=== PATIENT | male | born 1980 | race Caucasian/White ===

== ENCOUNTER 2022-08-24 20:51 | Emergency (ER) | payer SELFPAY ==
[~2022-08-24] VITALS: Ht 152.4 cm; Wt 79.4 kg
[2022-08-24 21:24] VITALS: BP 207/123
--- NOTE | 2022-08-24 21:32 | NUR ---
TO LOBBY FOLLOWING TRIAGE
--- NOTE | 2022-08-24 22:24 | NUR ---
PT TO BED #11 Addendum: 08/24/22 at 2226 by MEDGJ TO BED #12
[2022-08-24] MEDS ORDERED: KETOROLAC 30 MG/ML VIAL IM ONE (22:40)
--- NOTE | 2022-08-24 22:40 | NUR ---
Xray by beside
--- NOTE | 2022-08-24 23:10 | NUR ---
VOLAR SPLINT AND SLING APPLIED TO R WRIST/ARM. CMS CHECKED BEFORE/AFTER.
[2022-08-24] MEDS ORDERED: NAPR-54 PO (23:32)
[2022-08-24 23:45] VITALS: BP 195/122
--- NOTE | 2022-08-24 23:46 | NUR ---
Patient discharged with v/s stable. Written and verbal after care instructions given and explained. New rx naproxen. Patient verbalized understanding. Ambulatory with steady gait. All questions addressed prior to discharge. Advised to follow up with PMD.
== END 2022-08-24 23:46 | disposition home or self-care (01) ==
LOC: MED 20:51
DX: S60.212A Contusion of left wrist, initial encounter (principal); W01.0XXA Fall on same level from slipping, tripping and stumbling without subsequent striking against object, initial encounter; Y93.89 Activity, other specified; Y92.89 Other specified places as the place of occurrence of the external cause; Y99.8 Other external cause status
CPT/HCPCS: 29125; 73110; 96372; 99283; J1885; Q0092

== ENCOUNTER 2022-10-27 07:02 | Emergency (ER) | payer MEDICAID ==
[~2022-10-27] VITALS: Ht 170.2 cm; Wt 113.4 kg
[~2022-10-27 07:02] MED LIST: ETOMIDATE 20 MG/10 ML VIAL IVP ONE; NAPR-54 PO; ROCURONIUM 50 MG/5 ML VIAL IV ONE; SUCCINYLCHOLINE CHLORIDE 200 MG/10 ML VIAL IVP ONE
--- NOTE | 2022-10-27 07:03 | NUR ---
PT FATMATA ALS. TAKEN TO BED 10
--- NOTE | 2022-10-27 07:03 | NUR ---
Respiratory Therapist at bedside for respiratory intervention.
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
--- NOTE | 2022-10-27 07:03 | NUR ---
Dr. Kumar examining patient.
[2022-10-27 07:06] VITALS: BP 255/145; PULSE 132; RESP 14; TEMP 102.7; O2SAT 96
[2022-10-27] MEDS ORDERED: NACL 0.9% 1,000 ML IV SCH (07:15)
[2022-10-27] MEDS ORDERED: PROPOFOL 1000 MG/100 ML PREMIX 100 ML IV ONE ×2 (07:15→07:40)
[2022-10-27] MEDS ORDERED: ETOMIDATE 20 MG/10 ML VIAL IVP ONE (07:20)
[2022-10-27] MEDS ORDERED: SUCCINYLCHOLINE CHLORIDE 200 MG/10 ML VIAL IVP ONE (07:20)
[2022-10-27] MEDS ORDERED: ACETAMINOPHEN 325 MG SUPP RC ONE ×2 (07:30→09:51)
[2022-10-27 07:32] LABS: BASOPHILS # (AUTO) 0.1 K/uL (0.00-0.22); BASOPHILS % (AUTO) 0.4 % (0.0-2.0); HEMATOCRIT 41.6 % (36-52); HEMOGLOBIN 14.1 g/dL (12.0-18.0); LYMPHOCYTES # (AUTO) 0.6 K/uL (2.0-11.5); LYMPHOCYTES % (AUTO) 4.6 % (20.5-51.1); MEAN CORPUSCULAR HEMOGLOBIN 32 pg (27-31); MEAN CORPUSCULAR HGB CONC 34 g/dL (33-37); MEAN CORPUSCULAR VOLUME 94.7 fL (80-94); MONOCYTES # (AUTO) 0.3 K/uL (0.8-1.0); MONOCYTES % (AUTO) 2.2 % (1.7-9.3); NEUTROPHILS # (AUTO) 12.9 K/uL (1.8-7.7); NEUTROPHILS % (AUTO) 92.8 % (42.2-75.2); PLATELET COUNT (AUTO) 241 K/uL (140-450); RED BLOOD CELL COUNT(AUTO) 4.39 MIL/uL (4.20-6.10); RED CELL DISTRIBUTION WIDTH 13.1 % (11.6-13.7); WHITE BLOOD COUNT (AUTO) 13.9 K/uL (4.8-10.8)
[2022-10-27] MEDS ORDERED: LABETALOL 20 MG/4 ML VIAL IVP ONE ×3 (07:35→09:00)
[2022-10-27 07:51] LABS: APPEARANCE,URINE CLEAR (CLEAR); BILIRUBIN,URINE NEGATIVE (NEGATIVE); BLOOD, URINE 2+ (NEGATIVE); COLOR,URINE YELLOW (YELLOW); LEUKOCYTE ESTERASE ,URINE NEGATIVE (NEGATIVE); NITRITE, URINE NEGATIVE (NEGATIVE); PH,URINE 6.5 (5.0-9.0); UGLUCOSE 1+ (NEGATIVE)
[2022-10-27 07:52] LABS: ANION GAP 15.7 (8-16); CARBON DIOXIDE 26.2 mmol/L (21-32); CREATININE 1.9 mg/dL (0.6-1.3); TOTAL BILIRUBIN 1.2 mg/dL (0.0-1.0)
[2022-10-27 07:54] LABS: ACETAMINOPHEN < 0.5 ug/ml (10-30); LIPASE 184 U/L (73-393); SALICYLATE < 2.8 mg/dL (2.8-20.0)
[2022-10-27] MEDS ORDERED: VANCOMYCIN 1,000 MG in DEXTROSE 5% 250 ML IV ONE (07:55)
[2022-10-27] MEDS ORDERED: PIPERACILLIN/TAZOBACTAM 3.375 GM in DEXTROSE 5% 50 ML IV ONE (07:55)
--- NOTE | 2022-10-27 07:55 | NUR ---
RT NOTES: RFS: CALLED TO BEDSIDE TO TRANSPORT PT TO CT. TRANSPORTED TO CT AND BACK WITHOUT INCIDENT.
[2022-10-27 07:56] LABS: POTASSIUM 2.9 mmol/L (3.5-5.1)
--- NOTE | 2022-10-27 08:00 | NUR ---
PT OFF UNIT TO CT. TRANSPORTED BY [facility] WITH EMT, RN, RT, ADOLESCENT MEDICINE SPECIALIST.
[2022-10-27 08:02] LABS: PROTHROMBIN TIME 9.9 secs (10.8-13.4)
[2022-10-27 08:04] LABS: BARBITURATE, URINE NEGATIVE ng/ml (NEG <=200); BENZODIAZEPINE, URINE NEGATIVE ng/mL (NEG <=200); CANNABINOID, URINE NEGATIVE ng/mL (NEG <=50); COCAINE, URINE NEGATIVE ng/mL (NEG <=300); OPIATE, URINE NEGATIVE ng/mL (NEG <=2000); PHENCYCLIDINE SCREEN,URINE NEGATIVE ng/mL (NEG <=25)
[2022-10-27] MEDS ORDERED: MAG SULF 2000 MG/WATER PREMIX 50 ML IV ONE (08:10)
[2022-10-27] MEDS ORDERED: VANCOMYCIN PER PHARMACY MC PRN (08:15)
[2022-10-27] MEDS ORDERED: NACL 0.9% 1,000 ML IV ONE (08:15)
--- NOTE | 2022-10-27 08:38 | NUR ---
RETURNED BACK TO ROOM [address]-SCAN. [facility] CALLED TO ARRANGE EMTALA TRANSFER. REQUESTED BP MED FROM DR. SIN. ALFONSO STATED, THAT SHE WOULD LIKE THE SBP GREATED THAN 220 PER PROTOCOL.
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
[2022-10-27 08:45] VITALS: BP 179/107; PULSE 80; O2SAT 95
--- NOTE | 2022-10-27 08:59 | NUR ---
STATED, SHE WOULD BE ORDERING A LABETALOL IVP TO HELP REGULATE THE PT'S BP.
[2022-10-27] MEDS ORDERED: KCL 20 MEQ IN 100 mL PREMIX 200 ML IV ONE (09:00)
[2022-10-27] MEDS ORDERED: LABETALOL 250 MG in DEXTROSE 5% 200 ML IV SCH (09:00)
[2022-10-27] MEDS ORDERED: NICARDIPINE HYDROCHLORIDE 25 MG in NACL 0.9% 240 ML IV ONE (09:10)
--- NOTE | 2022-10-27 09:10 | NUR ---
LAB AT ATTEMPTING TO DRAW PT. PT REMAINS IN CRITICAL CONDITION.
[2022-10-27] MEDS ORDERED: PIPERACILLIN/TAZOBACTAM 3.375 GM VIAL IV ONE (09:47)
[2022-10-27] MEDS ORDERED: VANCOMYCIN 1,000 MG VIAL ONE (09:47)
[2022-10-27] MEDS ORDERED: VANCOMYCIN 1,000 MG in DEXTROSE 5% 250 ML IV SCH (09:50)
[2022-10-27] MEDS ORDERED: NICARDIPINE HYDROCHLORIDE 25 MG in NACL 0.9% 240 ML IV SCH (09:50)
--- NOTE | 2022-10-27 10:12 | NUR ---
PT ON NICARDIPINE DRIP 5MG/HER. BP STARTING TO DECREASE. [facility] SBP GOAL TO TRANSFER PT IS SBP 140.
--- NOTE | 2022-10-27 11:23 | NUR ---
AT WITH PT. PT ACCEPT TO [facility] FOR TRANSFER. BP CONTINUES TO TREND DOWN. MONITORING STATUS.
--- NOTE | 2022-10-27 11:45 | NUR ---
Avni garay in ED - 10/27/22 at 1323 by [id number] Patient will be admitted to care of AMANDA ALFONSO. Admited to . Will go to room. Belongings list completed. Report to .
[2022-10-27] MEDS ORDERED: PIPERACILLIN/TAZOBACTAM 3.375 GM in DEXTROSE 5% 50 ML IV SCH (12:00)
--- NOTE | 2022-10-27 12:01 | NUR ---
[facility] AT BEDSIDE.
--- NOTE | 2022-10-27 12:15 | NUR ---
[facility] TRANSPORT ARRIVED. ACLS/CCT WITH REGULATORY COMPLIANCE COORDINATOR TRANSPORT ARRIVED. PT CURRENTLY STABLE FOR TRANSPORT. PT ENDORSED TO RN YULI FROM [facility]. UPON ENDORSEMENT PT HAD PROPOFOL 5MCG/KG/MIN AT 2.67ML PER HOUR AND NICARDEPINE DRIP 5MG/HR AT 50ML/HR INFUSING WELL BY PERIPHERAL IV ACCESS. VENT SETTINGS A/C /VC, RATE 20, LM=268, PEEP=5, FIO2=50. OGT DRAINING COFFEE GROUND COLORED GASTRIC DRAINAGE, CONTINUES TO DRAIN CLEAR YELLOW URINE BY F/C. SR ON RESIDENT BUYER. BP WITH IN DESIRED RATE FOR TRANSFER.
[2022-10-27 12:20] VITALS: BP 141/81; PULSE 75; RESP 20; TEMP 99.9; O2SAT 98
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
--- NOTE | 2022-10-27 15:29 | NUR ---
Patient to be transferred to []. Is being transferred due to []. Receiving facility has accepting physician and available space. ER physician has signed transfer form. Patient or responsible constitution party has agreed to transfer and signed form. Patient belongings inventoried and will be sent with patient. Copy of nursing notes, lab reports, EKG, Physicians Orders and X-rays to be sent with patient. Report called to [] at receiving facility. [] ambulance service has been called for transfer. ETA is [].
== END 2022-10-27 12:20 | disposition short-term general hospital (02) ==
LOC: MED 07:02
DX: A41.9 Sepsis, unspecified organism (principal); Z20.822 Contact with and (suspected) exposure to COVID-19; I21.4 Non-ST elevation (NSTEMI) myocardial infarction; I61.8 Other nontraumatic intracerebral hemorrhage; E87.6 Hypokalemia; G93.40 Encephalopathy, unspecified; I10 Essential (primary) hypertension; Z79.899 Other long term (current) drug therapy
CPT/HCPCS: 31500; 36415; 36600; 51702; 70450; 71045; 71250; 72125; 74176; 80053; 80305; 81001; 82140; 82550; 82553; 82803; 83605; 83690; 83880; 84484; 85025; 85610; 85730; 86886; 86900; 86901; 87040; 87070; 87086; 87186; 87205; 87426; 87804; 93005; 96361; 96365; 96366; 96368; 96375; 96376; 99291; G0480; G0482; G0500; J0330; J2543; J2704; J3370; J3475; J3480; J3490; J7030; J7060; Q0092; 99285